=== PATIENT | male | born 1985 | race Two or more races ===

== ENCOUNTER 2022-03-07 17:22 | Emergency (ER) | payer OTHER ==
[~2022-03-07] VITALS: Ht 180.3 cm; Wt 96.2 kg
== END 2022-03-07 20:40 | disposition home or self-care (01) ==
LOC: ER 17:22
DX: S92.521A Displaced fracture of middle phalanx of right lesser toe(s), initial encounter for closed fracture (principal); W22.8XXA Striking against or struck by other objects, initial encounter; Y93.9 Activity, unspecified; Y92.832 Beach as the place of occurrence of the external cause; Z88.0 Allergy status to penicillin